=== PATIENT | female | born 1940 | race Caucasian/White ===

== ENCOUNTER 2017-07-20 18:27 | Inpatient (IN) | payer MEDICARE, BC ==
[~2017-07-20] VITALS: Ht 160 cm; Wt 131.3 kg
--- NOTE | ~2017-07-20 | DS ---
Discharge Summary [id number] [place]. [address] NAME: SALOMÓN DACOSTA : 40 STATUS : DIS IN PAT#: [id number] AGE: 76 ADM/REG DATE : 07/21/17 MR#: [id number] REPORT SERV DATE: 07/25/17 DICTATED BY: ONI COFFEY DATE: 07/25/17 REPORT STATUS : Draft TRANSCRIBED BY: MODL DATE: 07/25/17 ADMISSION DATE: 07/21/2017 DISCHARGE DATE: 07/25/2017 DISCHARGE DIAGNOSES: 1. Left leg wound infection with methicillin-sensitive Staph aureus and Pseudomonas which was resistant to quinolone. 2. Paroxysmal atrial fibrillation. The patient is in sinus rhythm. 3. Chronic Coumadin use. 4. Hypertension. 5. Obesity with venous stasis. CONSULT: Dr. Carr. HISTORY OF PRESENT ILLNESS: This is a 76-year-old female patient who came to the hospital with a left side wound infection and was found to have a Pseudomonas infection which was resistant to quinolone for the outpatient therapy. She visited the emergency room and the emergency treatment was performed and culture was obtained at the emergency visit, which grew Pseudomonas which was resistant to the oral quinolone. Because of that reason, the patient was called for admission and admitted to hospital. The patient was put on the Zosyn. Seen by Dr. Carr's regarding the same pathogen she had it on knee infection in the left knee. He does not think it is anything relapse or recurrent. He thinks it is a separate incidence of the wound infection, so I recommended Zosyn to be continued until 08/01/2017. She tolerated all the treatment and will be arranging for home antibiotics through the PICC line. DISCHARGE MEDICATIONS: 1. Zosyn 3.375 every eight hours until 08/01/2017. 2. Rest of the home medications are not changed. TIME SPENT: More than 30 minutes of the patient education and coordination. EKL/MODL Oni Coffey M.D. / [id number] CC: Neil Grace M.D.
--- NOTE | ~2017-07-20 | HP ---
History And Physical [address] [facility] [place]. [address] NAME: SALOMÓN THEODORE : 40 STATUS : ADM IN [facility]#: [id number] AGE: 76 ADM/REG DATE : 07/21/17 MR#: [id number] REPORT SERV DATE: 07/21/17 DICTATED BY: JUANA KANG DATE: 07/21/17 REPORT STATUS : Draft TRANSCRIBED BY: MODL DATE: 07/21/17 DATE OF ADMISSION: 07/20/2017 POINT OF ENTRY: [facility] Emergency Department. CHIEF COMPLAINT: Left leg wound. HISTORY OF PRESENT ILLNESS: Ms Theodore is a 76-year-old female with history of paroxysmal atrial fibrillation on anticoagulation, recurrent urinary tract infections, hypertension, and recent admission for septic left prepatellar bursa, who presents to the emergency department today with reports of left leg wound for the past few weeks. The patient states about four to five weeks ago she banged her leg up against the edge of a utilization management um nurse creating a fairly large 4-5 inch laceration of her left lower extremity. She was seen in our emergency department where stitches were placed and was discharged to home. About a week later she started to develop purulent drainage from her wound, and her primary care physician placed her on doxycycline. She continued to have purulent drainage from her wound, was seen in the ER again this past Saturday where her antibiotic was changed to Augmentin, and wound cultures were taken. Wound cultures came back today as growing MSSA as well as fluoroquinolone resistant Pseudomonas and she was called and encouraged to present back to the emergency department for admission for IV antibiotics. The patient denies any fevers, night sweats, chills, chest pain, palpitations, shortness of breath, cough, sputum production, abdominal pain, nausea, vomiting, diarrhea, constipation, melena, or hematochezia. The patient states she has a history of recurrent urinary tract infections, is set to see a urologist over at [place] in a few weeks and wonders whether or not her history of incontinence and frequent urinary tract infections may be contributing to the organisms that are currently growing from her wound culture. Initial evaluation in the emergency department is notable for stable vital signs. She is afebrile. White count is normal. CRP is mildly elevated. She was given Zosyn and admitted to the Hospitalist Service. REVIEW OF SYSTEMS: Comprehensive review of systems otherwise negative unless listed in history of present illness. PREVIOUS MEDICAL HISTORY: 1. Atrial fibrillation, on anticoagulation. 2. Osteoarthritis. 3. Lymphedema. 4. Recurrent urinary tract infection. 5. Hypertension. 6. Chronic anemia. History And Physical [address] [place]. [address] NAME: SALOMÓN THEODORE : 40 STATUS : ADM IN [facility]#: [id number] AGE: 76 ADM/REG DATE : 07/21/17 MR#: [id number] REPORT SERV DATE: 07/21/17 DICTATED BY: JUANA KANG DATE: 07/21/17 REPORT STATUS : Draft TRANSCRIBED BY: BRYAN DATE: 07/21/17 7. History of C. diff colitis. 8. History of septic left prepatellar bursa growing MSSA as well as Pseudomonas. PAST SURGICAL HISTORY: 1. Bilateral total hip. 2. Left total knee. 3. Back surgery. 4. Incision and drainage of infected prepatellar bursa. ALLERGIES: NO KNOWN DRUG ALLERGIES. HOME MEDICATIONS: Pending at time of dictation. SOCIAL HISTORY: She denies any tobacco, alcohol, or illicits. FAMILY HISTORY: Hypertension. LABS AND IMAGIN. White count is 10.1, hemoglobin is 12.4, hematocrit is 36.1, and platelet count is 224. INR is 2.4. 2. Sodium is 139, potassium 4.2, chloride 105, carbon dioxide 30, BUN 32, creatinine 1.01, glucose is 90, calcium is 9.1, protein is 7.5, albumin is 3.4, bilirubin is 0.2, ALT is 20, AST is 21, and alkaline phosphatase is 78. 3. CRP is 8.2. 4. Lactic acid is 1.0. 5. Wound culture dated 07/17/2017 is growing MSSA as well as fluoroquinolone resistant Pseudomonas. PHYSICAL EXAMINATION: VITAL SIGNS: Temperature is 98.0 degrees Fahrenheit, pulse is 64, respirations 18, saturating 100% on room air, and blood pressure is 142/63. GENERAL: The patient is awake and alert, in no acute distress. Resting comfortably in bed. She is a well-developed, well-nourished elderly female. HEENT: Atraumatic and normocephalic. Moist mucous membranes. Pupils are equal, round, reactive to light and accommodation. Extraocular eye movements intact. No scleral icterus. NECK: No jugular venous distention. No carotid bruits. CARDIAC: Regular rate and rhythm. No murmurs, rubs, or gallops. Normal S1, S2. LUNGS: Clear to auscultation bilaterally. No wheezes, rhonchi, or crackles. ABDOMEN: Obese, soft, nontender, and nondistended with good bowel sounds. No rebound, guarding, or rigidity. EXTREMITIES: The patient has some mild lymphedema bilaterally. Her left lower extremity has an approximately 4-5 inch laceration over the midportion of her lateral left lower extremity. I do not appreciate any purulent drainage. There is some very mild erythema surrounding the laceration. SKIN: Warm and dry except as noted above. PSYCH: Affect appropriate. NEURO: Alert and oriented x3. Cranial nerves 2 through 12 grossly intact. Speech is History And Physical [address] [address] NAME: SALOMÓN THEODORE : 40 STATUS : ADM IN [facility]#: [id number] AGE: 76 ADM/REG DATE : 07/21/17 MR#: [id number] REPORT SERV DATE: 07/21/17 DICTATED BY: JUANA KANG DATE: 07/21/17 REPORT STATUS : Draft TRANSCRIBED BY: BRYAN DATE: 07/21/17 normal. Gait not assessed. ASSESSMENT AND PLAN: Ms Theodore is a 76-year-old female, status post laceration of her left lower extremity due to traumatic injury a few weeks ago, who is now growing wound culture with methicillin-sensitive Staphylococcus aureus and fluoroquinolone-resistant Pseudomonas. PROBLEM LIST: 1. Left leg wound growing MSSA and Pseudomonas. 2. Paroxysmal atrial fibrillation, on Coumadin. 3. Hypertension. 4. History of recurrent urinary tract infections. 5. Chronic lower extremity lymphedema. PLAN: 1. Left lower leg wound. We will place the patient on IV nafcillin as well as cefepime to treat the MSSA as well as fluoroquinolone-resistant Pseudomonas. Consult Wound Care for assistance with wound care as well as topical management. 2. Atrial fibrillation, on Coumadin. Have her pharmacy dose her Coumadin. The patient currently appears to be normal sinus rhythm. 3. Hypertension. Continue the patient's home medications once confirmed. IV hydralazine p.r.n. 4. Lower extremity lymphedema. Continue the patient's home diuretics. Appears to be well controlled at this time. 5. History of recurrent urinary tract infection. We will check a urinalysis and urine culture given the patient's concerns. 6. DVT prophylaxis. The patient is on Coumadin. CODE STATUS: The patient wishes to be full code. JCGerald/MODL Juana Kang MD / [id number] CC: Orion Delong M.D.
[~2017-07-20 18:27] MED LIST: ALTACE10 MG PO; APRES10B PO; BACDS PO; BENICAR HCT1 TA2 PO; C25 PO; C5 PO; CARDU4 PO; COUMADIN3 MG PO; CRANBERRY300 MG PO; D.O.S.100 MG PO; DCN100 PO; DIOVAN HCT320 MG/25 PO; DITRO5 PO; FLORASTOR250 MG PO; HORMONE PELLETS IM; K250 PO; LORT7 PO; LYRICA75 PO; MIRAPEX250 PO; MOBIC15 MG PO; NEUR300 PO; NORCO1 TA2 PO; PLAVIX PO; STEROID INJECTION IM; TEKTURNA300 MG PO; VENTOLIN HFA INH; ZOL50 PO
[2017-07-20 23:17] LABS: BASOPHILS 0.2 %; BASOPHILS ABSOLUTE 0.02 10/3/uL (0.0-0.16); EOSINOPHILS 1.2 %; EOSINOPHILS ABSOLUTE 0.12 10/3/uL (0.0-0.53); ER CBC TAT 0 Hrs 10 Mins; HEMATOCRIT 38.6 % (36.0-48.0); HEMOGLOBIN 12.4 g/dL (12.0-16.0); IMMATURE GRANULOCYTES 0.2 %; IMMATURE GRANULOCYTES ABSOLUTE 0.02 10/3/uL (0.0-0.11); LYMPHOCYTES 27.7 %; LYMPHOCYTES ABSOLUTE 2.81 10/3/uL (0.67-4.30); MEAN CORPUS HGB CONC 32.1 g/dL (32.0-36.0); MEAN CORPUSCULAR HEMOGLOB 30.8 pg (26.0-34.0); MEAN PLATELET VOLUME 12.6 fL (9.2-13.0); MONOCYTES 6.5 %; MONOCYTES ABSOLUTE 0.66 10/3/uL (0.21-1.20); NEUTROPHILS 64.2 %; PLATELET COUNT 224 10/3/uL (150-400); RBC DISTRIBUTION WIDTH 14.2 % (12.0-16.0); RED CELL COUNT 4.02 10/6/uL (4.0-5.6); WHITE BLOOD CELLS 10.1 10/3/uL (4.5-10.5)
[2017-07-20 23:19] LABS: MANUAL DIFF NO %
[2017-07-20 23:24] LABS: INTERNATIONAL NORMAL RATI 2.4 UNITS (-); PROTIME (NOT ORD) 26.3 SEC (12.0-14.5)
[2017-07-20 23:25] LABS: PARTIAL THROMBO TIME 41.9 SEC (22.5-37.2)
[2017-07-20 23:35] LABS: A/G RATIO 0.8 (0.7-1.9); ALBUMIN 3.4 G/DL (3.5-5.0); ALKALINE PHOSPHATASE 78 U/L (45-117); C-REACTIVE PROTEIN 8.2 MG/L (<8.0); CALCIUM, SERUM 9.1 MG/DL (8.5-10.4); CHLORIDE, SERUM 105 MMOL/L (96-112); CREATININE 1.01 MG/DL (0.55-1.02); GFR AFRICAN AMERICAN 63 ML/MIN (>=60); GFR NON AFRICAN AMERICAN 54 ML/MIN (>=60); GLOBULIN 4.1 G/DL (2.5-4.1); GLUCOSE, SERUM 90 MG/DL (60-99); POTASSIUM, SERUM 4.2 MMOL/L (3.5-5.3); SGOT(AST) 21 U/L (5-40); SGPT(ALT) 20 U/L (5-65); SODIUM, SERUM 139 MMOL/L (135-148); TOTAL BILIRUBIN 0.2 MG/DL (0-1.2); TOTAL PROTEIN 7.5 G/DL (6.0-8.5)
[2017-07-20 23:39] LABS: BUN (BLOOD UREA NITROGEN) 32 MG/DL (6-23); CO2 (CARBON DIOXIDE) 30 MMOL/L (24-34)
[2017-07-20 23:51] LABS: PROCALCITONIN <0.05 ng/mL (<0.5)
[2017-07-21] MEDS ORDERED: DIOVAN HCT320 MG/25 PO (00:26)
[2017-07-21] MEDS ORDERED: C5 PO (00:27)
[2017-07-21] MEDS ORDERED: NEUR300 PO (00:28)
[2017-07-21] MEDS ORDERED: C25 PO (00:28)
[2017-07-21] MEDS ORDERED: DITRO5 PO (01:10)
[2017-07-21] MEDS ORDERED: ZOL50 PO (01:10)
[2017-07-21] MEDS ORDERED: MIRAPEX125 PO (01:11)
[2017-07-21] MEDS ORDERED: NORCO1 TA2 PO (01:11)
[2017-07-21 04:54] LABS: WBC (NOT ORDERED) (RFLEX) 0 (0-5)
[2017-07-21 05:35] LABS: BASOPHILS 0.2 %; BASOPHILS ABSOLUTE 0.02 10/3/uL (0.0-0.16); EOSINOPHILS 1.2 %; HEMATOCRIT 36.2 % (36.0-48.0); HEMOGLOBIN 11.6 g/dL (12.0-16.0); IMMATURE GRANULOCYTES 0.1 %; IMMATURE GRANULOCYTES ABSOLUTE 0.01 10/3/uL (0.0-0.11); LYMPHOCYTES 20.7 %; LYMPHOCYTES ABSOLUTE 1.71 10/3/uL (0.67-4.30); MEAN CORPUSCULAR HEMOGLOB 30.4 pg (26.0-34.0); MEAN PLATELET VOLUME 11.9 fL (9.2-13.0); MONOCYTES 6.4 %; MONOCYTES ABSOLUTE 0.53 10/3/uL (0.21-1.20); NEUTROPHILS 71.4 %; NEUTROPHILS ABSOLUTE 5.91 10/3/uL (2.02-8.40); PLATELET COUNT 196 10/3/uL (150-400); RBC DISTRIBUTION WIDTH 14.2 % (12.0-16.0); RED CELL COUNT 3.81 10/6/uL (4.0-5.6); WHITE BLOOD CELLS 8.3 10/3/uL (4.5-10.5)
[2017-07-21 05:44] LABS: INTERNATIONAL NORMAL RATI 2.5 UNITS (-); PROTIME (NOT ORD) 26.7 SEC (12.0-14.5)
[2017-07-21 05:46] LABS: MANUAL DIFF NO %
[2017-07-21 05:47] LABS: BUN (BLOOD UREA NITROGEN) 32 MG/DL (6-23); CALCIUM, SERUM 8.6 MG/DL (8.5-10.4); CHLORIDE, SERUM 107 MMOL/L (96-112); CO2 (CARBON DIOXIDE) 26 MMOL/L (24-34); CREATININE 1.07 MG/DL (0.55-1.02); GFR AFRICAN AMERICAN 58 ML/MIN (>=60); GFR NON AFRICAN AMERICAN 50 ML/MIN (>=60); GLUCOSE, SERUM 104 MG/DL (60-99); POTASSIUM, SERUM 3.7 MMOL/L (3.5-5.3); SODIUM, SERUM 141 MMOL/L (135-148)
[2017-07-21 06:01] LABS: ASCORBIC ACID (UR NOT ORDER) NEG (NEG); BILIRUBIN, URINE NEGATIVE (NEG); KETONE, URINE NEGATIVE (NEG); LEUKOCYTE ESTERASE(NOT OR NEG (NEG)
[2017-07-22 05:32] LABS: INTERNATIONAL NORMAL RATI 3.2 UNITS (-)
[2017-07-22 05:39] LABS: PROTIME (NOT ORD) 32.4 SEC (12.0-14.5)
[2017-07-23 06:16] LABS: INTERNATIONAL NORMAL RATI 2.7 UNITS (-); PROTIME (NOT ORD) 28.1 SEC (12.0-14.5)
[2017-07-24 06:10] LABS: BASOPHILS 0.3 %; BASOPHILS ABSOLUTE 0.02 10/3/uL (0.0-0.16); EOSINOPHILS 2.6 %; EOSINOPHILS ABSOLUTE 0.19 10/3/uL (0.0-0.53); HEMATOCRIT 33.1 % (36.0-48.0); HEMOGLOBIN 10.5 g/dL (12.0-16.0); IMMATURE GRANULOCYTES 0.3 %; IMMATURE GRANULOCYTES ABSOLUTE 0.02 10/3/uL (0.0-0.11); LYMPHOCYTES 28.3 %; LYMPHOCYTES ABSOLUTE 2.08 10/3/uL (0.67-4.30); MANUAL DIFF NO %; MEAN CORPUS HGB CONC 31.7 g/dL (32.0-36.0); MEAN CORPUSCULAR HEMOGLOB 30.6 pg (26.0-34.0); MEAN CORPUSCULAR VOLUME 96.5 fL (80-100); MEAN PLATELET VOLUME 12.2 fL (9.2-13.0); MONOCYTES ABSOLUTE 0.59 10/3/uL (0.21-1.20); NEUTROPHILS 60.5 %; NEUTROPHILS ABSOLUTE 4.46 10/3/uL (2.02-8.40); PLATELET COUNT 189 10/3/uL (150-400); RBC DISTRIBUTION WIDTH 14.4 % (12.0-16.0); RED CELL COUNT 3.43 10/6/uL (4.0-5.6); WHITE BLOOD CELLS 7.4 10/3/uL (4.5-10.5)
[2017-07-24 06:17] LABS: INTERNATIONAL NORMAL RATI 2.2 UNITS (-)
[2017-07-24 06:18] LABS: PROTIME (NOT ORD) 23.8 SEC (12.0-14.5)
[2017-07-24 06:31] LABS: ALBUMIN 2.7 G/DL (3.5-5.0); BUN (BLOOD UREA NITROGEN) 36 MG/DL (6-23); CALCIUM, SERUM 8.5 MG/DL (8.5-10.4); CHLORIDE, SERUM 103 MMOL/L (96-112); CO2 (CARBON DIOXIDE) 28 MMOL/L (24-34); CREATININE 1.55 MG/DL (0.55-1.02); GFR AFRICAN AMERICAN 37 ML/MIN (>=60); GFR NON AFRICAN AMERICAN 32 ML/MIN (>=60); GLUCOSE, SERUM 90 MG/DL (60-99); POTASSIUM, SERUM 3.9 MMOL/L (3.5-5.3); SODIUM, SERUM 139 MMOL/L (135-148)
[2017-07-25 07:07] LABS: BASOPHILS 0.4 %; BASOPHILS ABSOLUTE 0.03 10/3/uL (0.0-0.16); EOSINOPHILS ABSOLUTE 0.24 10/3/uL (0.0-0.53); HEMATOCRIT 36.1 % (36.0-48.0); HEMOGLOBIN 11.7 g/dL (12.0-16.0); IMMATURE GRANULOCYTES 0.4 %; IMMATURE GRANULOCYTES ABSOLUTE 0.03 10/3/uL (0.0-0.11); LYMPHOCYTES 26.5 %; LYMPHOCYTES ABSOLUTE 2.13 10/3/uL (0.67-4.30); MEAN CORPUS HGB CONC 32.4 g/dL (32.0-36.0); MEAN CORPUSCULAR VOLUME 95.8 fL (80-100); MEAN PLATELET VOLUME 12.1 fL (9.2-13.0); MONOCYTES 5.7 %; MONOCYTES ABSOLUTE 0.46 10/3/uL (0.21-1.20); NEUTROPHILS ABSOLUTE 5.14 10/3/uL (2.02-8.40); PLATELET COUNT 209 10/3/uL (150-400); RBC DISTRIBUTION WIDTH 14.5 % (12.0-16.0); RED CELL COUNT 3.77 10/6/uL (4.0-5.6)
[2017-07-25 07:09] LABS: MANUAL DIFF NO %
[2017-07-25 07:14] LABS: INTERNATIONAL NORMAL RATI 1.7 UNITS (-); PROTIME (NOT ORD) 19.7 SEC (12.0-14.5)
[2017-07-25 07:31] LABS: PLATELET ESTIMATE ADQ (ADEQUATE)
[2017-07-25 07:32] LABS: RBC MORPHOLOGY NORM (NORMAL)
[2017-07-25 08:49] LABS: CALCIUM, SERUM 8.7 MG/DL (8.5-10.4); CHLORIDE, SERUM 103 MMOL/L (96-112); CO2 (CARBON DIOXIDE) 29 MMOL/L (24-34); CREATININE 1.43 MG/DL (0.55-1.02); GFR AFRICAN AMERICAN 41 ML/MIN (>=60); GFR NON AFRICAN AMERICAN 35 ML/MIN (>=60); GLUCOSE, SERUM 86 MG/DL (60-99); POTASSIUM, SERUM 4.1 MMOL/L (3.5-5.3); SODIUM, SERUM 140 MMOL/L (135-148)
[2017-07-25 09:02] LABS: BUN (BLOOD UREA NITROGEN) 34 MG/DL (6-23)
[2017-07-25] MEDS ORDERED: FLORASTOR250 MG PO (10:15)
[2017-07-25] MEDS ORDERED: IODOSORB TOP (13:52)
[2017-07-25] MEDS ORDERED: ZOSYN375 IV (13:53)
== END 2017-07-25 16:47 | disposition home health service (06) | DRG 603 ==
LOC: CANRESERV → ENRESERVTM → ENRESERV → ENRESERVDT → ER 18:27 → 2SO 07-21 01:01
PROVIDERS: Internal Medicine; Nurse Practitioner Family
PROC: 02HV33Z Insertion of Infusion Device into Superior Vena Cava, Percutaneous Approach (ICD-10-PCS; principal; 2017-07-25)
PROC: 4A02X4A Measurement of Cardiac Electrical Activity, Guidance, External Approach (ICD-10-PCS; 2017-07-25)
DX: L03.116 Cellulitis of left lower limb (principal); I48.0 Paroxysmal atrial fibrillation; B96.5 Pseudomonas (aeruginosa) (mallei) (pseudomallei) as the cause of diseases classified elsewhere; Z68.43 Body mass index [BMI] 50.0-59.9, adult; I10 Essential (primary) hypertension; I89.0 Lymphedema, not elsewhere classified; B95.61 Methicillin susceptible Staphylococcus aureus infection as the cause of diseases classified elsewhere; M19.90 Unspecified osteoarthritis, unspecified site; D64.9 Anemia, unspecified; I87.8 Other specified disorders of veins; E66.9 Obesity, unspecified; Z79.01 Long term (current) use of anticoagulants; Z96.643 Presence of artificial hip joint, bilateral; Z96.652 Presence of left artificial knee joint
CPT/HCPCS: 36569; 73590-LT; 80048; 80053; 80069; 81001; 83605; 84145; 85025; 85610; 85730; 86140; 87040; 96374; 99284; A9270-GY; C1751; J0692; J2543